=== PATIENT | female | born 2000 | race Two or more races ===

== ENCOUNTER 2024-04-23 08:56 | Emergency (ER) | payer BC, SELFPAY ==
[2024-04-23 09:06] VITALS: PULSE 94; RESP 18; O2SAT 98; BMI 25.9
[2024-04-23 09:09] VITALS: BP 102/66; PULSE 58; RESP 16; TEMP 36.8; O2SAT 97
--- NOTE | 2024-04-23 09:27 | XR_ITS ---
Examination: AP chest single view Technique one AP portable upright chest single view Exam date and time: April 23, 2024 at 0945 hrs. Indications: Chest pain today. Findings: Normal heart size. Lungs are clear. The osseous structures are intact. Impression: No active disease
--- NOTE | 2024-04-23 09:27 | EKG_ITS ---
[facility] Test Date: 2024-04-23 Pat Name: SHIRA COON Department: Room: - Gender: Female [employer]: : 2000 Requested By: Luca Oconnor Order Number: [id number] Reading MD: Luca Oconnor Measurements Intervals [place] Rate: 56 P: 0 ID: [id number] QRS: 54 QRSD: 86 T: 40 QT: 412 QTc: 399 Interpretive Statements ELECTRONIC ATRIAL PACEMAKER POSSIBLE RIGHT VENTRICULAR CONDUCTION DELAY [RSR (QR) IN V1/V2] ABNORMAL RHYTHM ECG No previous ECG available for comparison /store/S0/[id number].pdf
[2024-04-23 10:09] LABS: Basophils % (Auto) 0 % (0-2.5); Eosinophils % (Auto) 0 % (0-10); Immature Granulocytes % (Auto) 0 % (0-0); Immature Granulocytes Auto 0.03 Thou/mm3 (0.00-0.00); Lymphocytes # (Auto) 1.2 Thou/mm3 (1.0-4.8); Lymphocytes % (Auto) 11 % (10-50); Mean Corpuscular HGB Conc 33.3 g/dl (31.0-37.0); Mean Corpuscular Volume 87 fL (80-100); Monocytes # (Auto) 0.6 Thou/mm3 (0.0-0.8); Monocytes % (Auto) 6 % (0-12); Neutrophils # (Auto) 8.8 Thou/mm3 (1.8-7.7); Neutrophils % (Auto) 82 % (37-80); Nucleated Red Blood Cell % 0 /100 WBC (0); Platelet Count 225 Thou/mm3 (140-440); RDW Standard Deviation 43.6 fL (36.4-46.3); Red Blood Count 4.83 Miln/mm3 (4.00-5.20); White Blood Count 10.7 Thou/mm3 (3.6-11.0)
[2024-04-23 10:41] LABS: D-Dimer 326 ng/mL (<600)
[2024-04-23 10:42] LABS: B-Type Natriuretic Peptide < 20 pg/mL (0-100)
[2024-04-23 10:44] LABS: Alanine Aminotransferase 16 U/L (10-49); Alkaline Phosphatase 47 U/L (46-116); Anion Gap 9 (7-16); Aspartate Amino Transferase 17 U/L (0-34); BUN/Creatinine Ratio 11 Ratio (12-20); Bilirubin,Total 1.1 mg/dL (0.3-1.2); Blood Urea Nitrogen 10 mg/dL (9-23); Carbon Dioxide 26.5 mMol/L (20.0-31.0); Chloride 106 mMol/L (98-107); Creatinine (Component) 0.9 mg/dL (0.6-1.3); Estimated Creatinine Clearance 78.9 mL/min (>60); Globulin 2.5 gm/dL (2.3-3.5); Glucose 104 mg/dL (74-106); Lipase 50 U/L (12-53); Magnesium 2.2 mg/dL (1.6-2.6); Osmolality,Calculated 280 (275-295); Sodium 141 mMol/L (136-145); Total Protein 7.5 gm/dL (5.7-8.2); Troponin I < 0.020 ng/mL (0.0-0.045); eGFR > 60 See Note
[2024-04-23 11:11] VITALS: BP 102/73; PULSE 60; RESP 18; TEMP 37; O2SAT 99
[2024-04-23 11:19] LABS: Collection Type, Urine Clean Catch
[2024-04-23 11:40] LABS: HCG Qualitative,Urine Negative
[2024-04-23 11:48] LABS: Bilirubin,Urine Negative (Negative); Blood,Urine Negative (Negative); Color,Urine Yellow (Lt Yel-Yel); Culture Indicated,Urine Not Indicated; Glucose, Urine Negative (Negative); Ketones,Urine Trace (Negative); Leukocyte Esterase,Urine Negative (Negative); Nitrite,Urine Negative (Negative); Protein,Urine 2+ (Neg - Trace); RBC,Urine 2 /hpf (0-3); Specific Gravity,Urine 1.029 (1.001-1.035); Squamous Epithelial Cell,Urine 2 /hpf (0-5); WBC,Urine 3 /hpf (0-5)
--- NOTE | 2024-04-23 11:49 | EDNOTE_ITS ---
ED Syncope RME/HPI General Chief Complaint: Syncope / Near Syncope Stated Complaint: SYNCOPAL Time Seen by Provider: 04/23/24 09:27 Arrival date/time: 04/23/24 08:56 RME / HPI RME / HPI narrative: DR. NUNES MAIN ED EVALUATION: 24 year old female presents to the Emergency Department [facility] with complaint of a syncopal episode today prior to arrival. Patient went to the gym, was significantly working out as she does frequently, then went home and took a warm shower and passed out. Mother heard a thump sound from the shower and found her on the floor. Patient probably hit her head since she has headache/ head tende rness and a nasal laceration. Initially she was complaining of nausea without vomiting, but no more nausea. Mother reports that the patient has been dieting, eating 1200 calories and working out heavily, and thinks that is contributing to today's problem. Related Data Previous Rx's ?Medication ?Instructions ?Recorded ibuprofen 600 mg tablet 1 tab PO Q8HR PRN pain #30 tabs 01/22/15 cyclobenzaprine 5 mg tablet 5 mg PO BID PRN muscle spasm #10 06/24/23 tabs ibuprofen 600 mg tablet 600 mg PO Q8H PRN fever or pain 06/24/23 #30 tabs Allergies Allergy/AdvReac Type Severity Reaction Status Date / Time No Known Allergies Allergy Verified 06/24/23 05:24 Review of Systems Review of Systems Systems Reviewed: All systems reviewed, normal except as documented Narrative Review of Systems: GEN: No fever, no chills, no weight loss EYES: No discharge, no visual changes, no pain HEENT: No ear pain, no congestion, no sore throat PULM: No shortness of breath, no cough, no congestion CV: No chest pain, no dyspnea on exertion, no palpitations GI: + nausea, no vomiting, no diarrhea, no pain, no constipation : No frequency, no urgency and no dysuria MUSC/SKEL: No joint pain, no back pain SKIN: No rash. + nose laceration from fall (see HPI) PSYCH: No hallucinations, no depression HEME/LYMPH: No easy bleeding or bruising tendencies NEURO: No weakness, + headache from fall (see HPI), + syncopal episode (see HPI) Past Medical History Social History SMOKING STATUS: Never smoker SUBSTANCE USE: marijuana ALCOHOL: Never ED Exam Narrative Physical exam: Physical Exam: General: The vital signs were reviewed. The patient is non-toxic, in no apparent distress and appears healthy with a patent airway, no respiratory distress and has no apparent circulatory problems. Head & Scalp: Normocephalic, atraumatic. Face: Appears normal and is without lesions, deformity. Ears: Left external pinna appears normal. Right external pinna appears normal. Eyes: The sclera is anicteric. No obvious photophobia. The Left and Right Orbit/Lid/Conjunctiva appears normal without swelling, discoloration or injection. Nose: The bridge of the nose has a very small 3 mm small superficial laceration with a little clot over the top of it otherwise the remaining nose is without deformity, discharge or tenderness; Throat: Appears normal. The mucous membranes are pink and moist without exudates, redness or mass seen. The tongue appears normal. Neck: The neck is supple and no apparent mass or adenopathy. Chest: The chest wall is normal in size and symmetry and has no chest wall tenderness or crepitus. The patient displays normal ventilator effort without retractions, accessory muscle use and has adequate air movement bilaterally with no wheezes and no rales. Cardiovascular: Regular rate and rhythm; No murmurs, rubs, or gallops; Gastrointestinal: The abdomen appears normal. No obvious hernias or mass. The abdomen is soft and benign, non-distended, with no pain, no guarding and no rebound tenderness. Bowel sounds are present and normal sounding. No CVA tenderness. Genitourinary: Back/Spine: Normal inspection nontender Extremities/Musculoskeletal/lymphatic: The bilateral upper and lower extremities are warm. There is no evidence of arterial insufficiency. There is no evidence of venous insufficiency/edema. The patient spontaneously moves bilateral upper and lower extremities with no pain and no limitation of movement. There is no apparent, injury or trauma. Skin: The skin is warm, dry and intact. No rashes. No petechia. No purpura. No abnormal bruising. The color is appropriate with no cyanosis. Mental status/Psychiatric: Mental status is appropriate for age. The patient has no apparent delusions, visual hallucinations, no apparent audible hallucinations. The patient has no apparent suicidal thoughts/ideation and no apparent homicidal thoughts/ideation. Neurological: The patient is awake, alert, interactive, cordial, cooperative and is oriented to name and situation. The patient follows commands and answers historical question with no impairment. There is no visual disturbance apparent. The pupils are equal and reactive bilaterally with normal eye movements and no diplopia The bilateral upper and lower extremities have normal strength, normal range of motion and normal functioning. The gait, station and balance appear to be baseline with no acute change Course Quality Measures none Orders Category Date Time Status EKG (ED ONLY) *Do not use* NOW Care 04/23/24 09:27 Completed EKG (ED Only) Stat Exams 04/23/24 09:27 Draft XR chest 1V portable Stat Exams 04/23/24 09:27 Completed B-Type Natriuretic Peptide Stat Lab 04/23/24 09:54 Completed CBC Stat Lab 04/23/24 09:54 Completed Comprehensive Metabolic Panel Stat Lab 04/23/24 09:54 Completed D-Dimer Stat Lab 04/23/24 09:54 Completed Drug Screen,Urine Stat Lab 04/23/24 11:10 Completed HCG Qualitative,Urine Stat Lab 04/23/24 11:10 Completed Lipase Stat Lab 04/23/24 09:54 Completed Magnesium Stat Lab 04/23/24 09:54 Completed Troponin I Stat Lab 04/23/24 09:54 Completed Urinalysis, C/S if Indicated Stat Lab 04/23/24 11:10 Completed Vital Signs Vital signs: Vital Signs Temperature 98.3 F 04/23/24 09:09 Pulse Rate 58 L 04/23/24 09:09 Respiratory Rate 16 04/23/24 09:09 Blood Pressure 102/66 04/23/24 09:09 Pulse Oximetry (%) 97 04/23/24 09:09 Oxygen Delivery Method Room Air 04/23/24 09:09 Procedures -ED Laceration Laceration 1: Site: face (nasal laceration with mini sepation) Size (cm): 0.4 Description: linear Depth: simple, single layer Skin layer closed with: other (steri strip placed ) Syncope MDM Narrative MDM Narrative:: I, Misty Schafer, am scribing for and in the presence of Dr. Nunes. Patient 24-year-old who today was working out heavily in the morning came home went to the shower got weak and dizzy and mom heard a thump and found the patient on the floor. She bumped her head has some minimal head tenderness there is been no vomiting there might have been a little nausea initially. There was no loss of memory and no change in mental status observed. Patient had a few moments of shakes while on the floor but then woke up immediately and responding to questions with her usual mental status. Patient was brought in by EMS and we worked her up for syncopal event essentially came back negative with a white count of 10.7 hemoglobin of 14.0 D- dimer was 326 and essentially negative. Sodium 141 potassium 4.0 chloride 106 CO2 is 26.5 BUN is 10 creatinine 0.9 rest of the CMP was negative. Urinalysis had 2+ protein and negative glucose and specific gravity of 1029 urinalysis came back negative test was negative drug screen came back positive for marijuana. Reevaluation of the patient at 1320 hrs. shows the patient be alert awake there is no nausea vomit she is hungry has been eating drinking without any nausea she is ambulatory. The wound was irrigated and cleaned very superficial nondisplaced laceration. The patient and the mom are present and patient was clearly advised no driving until reevaluation in 3 days. The be no work for 3 days. She understands that this will be an automatic report to the V Patient data External records reviewed:: [facility] previous records (Reviewed last ED visit dated 06/24/23, discharged with the following: Acute sore throat.) and EMS form Clinical information provided by:: patient and EMS Social determinants that could affect healthcare access:: substance use (marijuana) Patient has the following chronic illnesses:: Denies any PMHx, surgeries, daily medications, or known allergies. How is presenting disease/condition affected by chronic disease/condition?: no chronic disease Evaluation data The following diagnostics were reviewed and interpreted by me:: lab results, radiology exam(s) and EKG tracing(s) (EKG#1: Dated 04/23/2024 at 1143 hours. Interpreted by me: sinus bradycardia, rate 56, no STEMI) Lab and/or radiology exams considered but not ordered:: none Interpretation Summary: See above under MDM narrative. RADIOLOGY Procedure(s): XR chest 1V portable Accession Number(s): [id number] cc: Luca Nunes MD; Fab Wallace MD~ Examination: AP chest single view Technique one AP portable upright chest single view Exam date and time: April 23, 2024 at 0945 hrs. Indications: Chest pain today. Findings: Normal heart size. Lungs are clear. The osseous structures are intact. Impression: No active disease Dictated By: Fab Wallace MD Medications / Prescriptions Medications or Prescriptions considered but not ordered:: none Medication administrations:: none Consultations Consultation(s) initiated? (list below): No Diagnosis Syncope Differential Diagnosis: vasovagal syncope, dehydration and other (electrolyte imbalance) Most likely diagnosis given after review of the tests above:: Syncope Contusion of face Laceration of nose Admission Indicated Admission indicated?: not indicated Admission Request Was there a request for admission?: No Disposition Plan Disposition Plan: Discharge Discharge Attestation Discharge Attestation: The patient and all family members were given an opportunity to ask questions and understood the discharge instructions. Discharge instructions specifically effects, indications for sooner follow up or return to the emergency department, and the expected course of current diagnosis. Patient condition: Stable Discharge Plan Plan Patient Disposition: HOME (Self Care) Prescriptions/Referrals Prescriptions/Med Rec: No Action ibuprofen 600 MG tablet 1 tab PO Q8HR PRN (Reason: pain) Qty: 30 0RF ibuprofen 600 mg tablet 600 mg PO Q8H PRN (Reason: fever or pain) Qty: 30 0RF cyclobenzaprine 5 mg tablet 5 mg PO BID PRN (Reason: muscle spasm) Qty: 10 0RF Referrals: No Primary/Family,Physician [Primary Care Provider] - In 1 week Problem List Clinical Impression: Syncope, Contusion of face, Laceration of nose Patient/Caregiver Discharge Instructions Education Materials: Causes of Syncope, ED Fainting, Uncertain Cause Additional Instructions: Today you had an episode of syncope or passing out. Your blood tests were within normal limits. Most likely this is a vasovagal reaction. You are not to drive a car or operate any equipment or climb ladders or get on ropes as the cause has not been determined at this time. No been no work for 3 days follow- up with your regular doctor who can reevaluate. Also had a small nasal laceration that was Steri-Stripped. Observe for any infection these should fall off in 3 to 5 days. If you begin to have nausea vomiting getting sicker in any way please return for reevaluation. As we discussed I do not believe you need a CAT scan today of your brain as the risk of brain injury is low. Return to the emergency department if you are having more than 2 episodes of vomiting change in mental status or getting worse in some significant way. Print Language: Salvadorean Stand Alone Forms: Diandra Award Info., Work/School Release, Patient Portal Info Letter
[2024-04-23 12:17] LABS: Clarity,Urine Hazy (Clear/Hazy)
[2024-04-23 12:24] LABS: Amphetamine/Methamp Scrn,U Negative (Negative); Barbiturate Screen,Urine Negative (Negative); Benzodiazepines Screen,Urine Negative (Negative); Benzoylecgonine Screen, Ur Negative (Negative); Fentanyl Screen,Urine Negative (Negative); Opiate Screen,Urine Negative (Negative); THC Screen,Urine Positive (Negative)
== END 2024-04-23 14:23 | disposition home or self-care (01) ==
PROVIDERS: Emergency Provider Emergency Medicine
DX: R55 Syncope and collapse (principal); S01.21XA Laceration without foreign body of nose, initial encounter; S00.83XA Contusion of other part of head, initial encounter
CPT/HCPCS: 36415; 71045; 80053; 80307; 81001; 81025; 83690; 83735; 83880; 84484; 85025; 85379; 93005; 99283